=== PATIENT | female | born 1965 | race Caucasian/White ===

== ENCOUNTER 2019-07-21 08:34 | Inpatient (IN) ==
[2019-07-21] MEDS ORDERED: VANCOMYCIN 1 GM/NS 1 GM/250 ML IVPB IV ONE ×2 (09:18→15:00)
[2019-07-21] MEDS ORDERED: MAXIPIME 1 GM in NS 50 ML IV ONE (09:20)
--- NOTE | 2019-07-21 09:24 | PROVIDER DOCUMENTATION ---
HPI-Musculoskeletal Pain/Inj - GENERAL Chief Complaint: Extremity Pain Stated Complaint: FOOT PAIN,DIABETIC Time Seen by Provider: 07/21/19 09:18 - HX OF PRESENT ILLNESS-MUSKULOSKELTAL Nature of Presenting Problem: 54 YO F pmh for DM presents with right great toe pain, redness and swelling getting worse for the past week. Pt states 3 months ago she walked the skin off her feet, and she has had intermittent symptoms since then. She has not f/u with PCP due to lack of insurance. She states she has seen pus pockets on her toe and has lanced it 2x in the past week. She comes in today for worsening symptoms. Quality of Pain: reports: aching, pressure Severity in ED: moderate Onset/Duration: 1 week ago Timing: still present, constant Modifying Factors: improves with: other (lancing) Any recent injury?: Yes Locality of Occurance: Home Similar Symptoms Previously?: No Recently seen or treated by another doctor?: No - LOWER EXTREMITY PAIN/INJURY Lower Extremities Pain: 1st toe: right Context / Method of Injury: reports: other (see HPI) Review of Systems - Adult - REVIEW OF SYSTEMS - ADULT Constitutional: reports: fever. denies: chills Eyes: reports: no symptoms reported Ears, Nose, Mouth & Throat: reports: no symptoms reported Cardiovascular: reports: no symptoms reported Respiratory: denies: shortness of breath, wheezing Gastrointestinal: reports: no symptoms reported. denies: nausea, vomiting Genitourinary: reports: no symptoms reported Musculoskeletal: reports: see HPI Integumentary: reports: see HPI Neurological: reports: no symptoms reported Psychiatric: reports: no symptoms reported Endocrine: reports: no symptoms reported Past History - Adult - PAST MEDICAL HISTORY-ADULT Review of Records: reports: Old Records Reviewed Major Childhood Illnesses: reports: denies history Cardiovascular: reports: denies history Respiratory: reports: denies history Gastrointestinal: reports: denies history Obstetrical/Gynecological: reports: denies history Genitourinary: reports: denies history Musculoskeletal: reports: denies history Neurological: reports: denies history Endocrine/Immune: reports: Diabetes Other Conditions: reports: denies history Additional History: autoimmune disorder, unknown of name - PRIOR SURGERIES/PROCEDURES Surgical/Procedure History: reports: cholecystectomy, - IMMUNIZATION STATUS Childhood Immunizations: See Nurse Assessment Flu Vaccine: See Nurse Assessment - FAMILY HISTORY Family History: reviewed, not pertinent - SOCIAL HISTORY Smoking: quit greater than 1 year Substance Use: denies Living Situation: family Physical Exam-Injury Related - Physical Exam-Injury Related Initial Vital Signs Reviewed: Yes General Appearance: appears well, alert, mild distress (from pain) Eyes: PERRL/EOMI, pink conjunctivae Head, Ears, Nose, Mouth & Throat: normocephalic/atraumatic, moist mucous membranes Neck: supple Respiratory: lungs clear, normal breath sounds, no respiratory distress Cardiovascular: tachycardia Abdominal Exam: normal bowel sounds, non tender, soft Back Exam: no CVA tenderness Extremity: normal range of motion, other (redness, erythema, ulceration to sole of Right great toe. erythema extending to lower calf) Integumentary: other (drainage from ulcerated lesion on sole of right great toe) Neurologic: grossly normal Progress - PLAN OF CARE/RESULTS Progress/Plan/Lab Results: Orders Category Date Time Status Admit - [facility] Routine AdmDCTranf 07/21/19 13:48 Active Activity - Up with Assistance ORDERED Care 07/21/19 13:48 Active Cardiac Monitoring DIRECTED Care 07/21/19 09:12 Completed FSBS/Accucheck Result AC + HS Care 07/21/19 13:48 Active IV Insertion ORDERED Care 07/21/19 09:12 Completed Intake and Output-Strict ORDERED Care 07/21/19 13:48 Active Notify MD of + Sepsis Screen NOW Care 07/21/19 09:12 Completed Notify Physician As Ordered Care 07/21/19 09:12 Active Nursing- MD Consult Request ROUTINE Care 07/21/19 13:48 Active Vital Signs Order Q 8-HR ASSESS Care 07/21/19 13:48 Active MD [Physician/Provider Consults] Routine Cons 07/21/19 13:48 Ordered Diabetic Diet Diet 07/21/19 13:48 Completed CHEST-2 VIEWS [RAD] Stat Exams 07/21/19 09:18 Completed TOE(S)-RIGHT [RAD] Stat Exams 07/21/19 09:42 Completed A1C HGB W EST AVG GLUCOSE [CHEM] Routine Lab 07/22/19 06:21 Completed BLOOD CULTURE [BLDCUL] Stat Lab 07/21/19 09:50 Completed CBC WITH DIFF [HEME] Routine Lab 07/22/19 06:21 Completed CBC WITH DIFF [HEME] Stat Lab 07/21/19 09:08 Completed CK PROFILE [SP CHEM] Stat Lab 07/21/19 09:08 Completed COMPREHENSIVE METABOLIC PANEL [CHEM] Routine Lab 07/22/19 06:21 Completed COMPREHENSIVE METABOLIC PANEL [CHEM] Stat Lab 07/21/19 09:08 Completed LACTATE, PLASMA [CHEM] Lab 07/21/19 12:30 Completed LACTATE, PLASMA [CHEM] Lab 07/21/19 15:05 Completed LACTATE, PLASMA [CHEM] Q3H Lab 07/21/19 09:08 Completed MAGNESIUM [CHEM] Routine Lab 07/22/19 06:21 Completed PROTIME WITH INR [COAG] Stat Lab 07/21/19 09:08 Completed PTT [COAG] Stat Lab 07/21/19 09:08 Completed ROUTINE CULTURE [RM] Routine Lab 07/21/19 10:20 Completed TROPONIN T Stat Lab 07/21/19 09:08 Completed URINALYSIS W/POSS RFLX CULT [URINALYSIS] Stat Lab 07/21/19 11:20 Completed 0.9% Sodium Chloride Inj [Ns] 1,000 ml Med 07/21/19 09:51 Discontinued IV 999 mls/hr 0.9% Sodium Chloride Inj [Ns] 1,000 ml Med 07/21/19 11:12 Discontinued IV 999 mls/hr Acetaminophen [Tylenol] Med 07/21/19 13:48 Discontinued 650 mg PO Q6H PRN PRN CefEPIME [Maxipime] 1 gm Med 07/21/19 09:20 Discontinued 0.9% Sodium Chloride Inj [Ns] 50 ml IV NOW CefEPIME [Maxipime] 2 gm Med 07/21/19 21:00 Discontinued 0.9% Sodium Chloride Inj [Ns] 100 ml IV Q12H Hydrocodone/APAP 7.5 mg/325 mg [[place]-7.5] Med 07/21/19 13:48 Discontinued 1 each PO Q6H PRN PRN Hydromorphone [Dilaudid] Med 07/21/19 10:22 Discontinued 1 mg IV NOW ONE Insulin Lispro [Humalog] Med 07/21/19 16:00 Discontinued See Protocol SUBQ 0700,1100,1600,2100 Ondansetron [Zofran] Med 07/21/19 10:22 Discontinued 4 mg IV NOW ONE Ondansetron [Zofran] Med 07/21/19 13:48 Discontinued 4 mg IV Q4H PRN PRN Pharmacy Order [Vancomycin IV Per Pharmacy] Med 07/21/19 13:48 Discontinued 1 each MISC DIRECTED Vancomycin 1 gm/Ns Med 07/21/19 09:18 Discontinued 1 gm in 250 ml IV NOW Oxygen Device Stat Oth 07/21/19 09:12 Completed Transfer/Admit Order [TRANSFER] Routine Transfer 07/21/19 11:32 Completed Result Diagrams: 07/24/19 06:32 07/24/19 06:32 - REASSESSMENT Reassessment #1 Time Reassessed: 11:13 Status: improving (pt states pain improving. labs reviewed. will order another bolus of fluids. plan for admission.) Reassessment #2 Status: other (sepsis 2/2 to right great toe infection with WBC at 13 and lactate at 2.1. abx and fluids given.) - XRAY 1 XRAY Study: Chest Impression: See EMR Report (EXAM: CHEST-2 VIEWS 07/21/2019 HISTORY: sepsis workup TECHNIQUE: PA and lateral chest COMMENT: There are numerous calcified granulomata bilaterally. The heart size and pulmonary vascularity are within normal limits. The lungs are otherwise clear and unchanged since 10/24/2017. IMPRESSION: No acute disease. Electronically signed by Sukh Teran 07/21/2019 9:39 AM) 2 XRAY Study: Foot Impression: See EMR Report (EXAM: TOE(S)-RIGHT 07/21/2019 HISTORY: toe infecti on TECHNIQUE: Right great toe three views COMMENT: There is an apparent metallic foreign body on the plantar aspect of the distal first metatarsal. There is a small bony nodular calcific foreign body which appears to be on the skin of the plantar surface of the great toe. No evidence of acute fracture or dislocation or periosteal reaction is present. IMPRESSION: Metallic foreign body as described. No acute bony abnormality. Electronically signed by Sukh Teran 07/21/2019 10:26 AM) - CONSULTS/PCP/HOSPITALIST Notification #1 *Consult/PCP/Hospitalist*: admit to hospitalist Time Discussed: 11:13 Consult Disposition: Will see in ED, Admit Departure - Departure Date of Disposition Decision: 07/21/19 Time of Disposition Decision: 11:13 DIAGNOSIS: Toe infection, Hyperglycemia, Foreign body in foot or toe Disposition: ADMITTED INPATIENT 09 Certified Medical Emergency: Emergent Condition: Stable - Critical Care Note This patient required my direct & personal management of CC.: No Attestation - Physician/ PRAFUL Attestation The physician spent face to face time with patient:: Yes Advanced Practice Provider documentation review:: Supervising physician onsite and consulted in the evaluation and care of this patient. The physician did have a face to face encounter with the patient.
[2019-07-21 09:31] LABS: BASO# 0.04 X1000 (0.0-0.2); BASO% 0.3 % (0.0-0.8); EOS# 0.24 X1000 (0.0-0.7); EOS% 1.7 % (0.0-10.0); HEMATOCRIT 40.2 % (37.0-47.0); HEMOGLOBIN 13.4 g/dL (12.0-16.0); IMM GRAN# 0.03 X1000 (0.0-0.04); IMM GRAN% 0.2 % (0.0-0.5); LYMPH# 2.65 X1000 (1.2-3.4); MCH 29.2 PG (27-31); MCHC 33.3 g/dL (33-37); MCV 87.6 FL (81-99); MONO# 0.81 X1000 (0.11-0.59); MONO% 5.8 % (1.7-9.3); MPV 12.6 FL (7.4-10.4); NEUT# 10.21 X1000 (1.4-6.5); PLT 197 X1000 (130-400); RBC 4.59 XMIL (4.2-5.4); RDW 12.5 % (11.5-14.5); WBC 13.98 X1000 (4.8-10.8)
--- NOTE | 2019-07-21 09:41 | Diag Imaging Result Doc PS360 ---
EXAM: CHEST-2 VIEWS 07/21/2019 HISTORY: sepsis workup TECHNIQUE: PA and lateral chest COMMENT: There are numerous calcified granulomata bilaterally. The heart size and pulmonary vascularity are within normal limits. The lungs are otherwise clear and unchanged since 10/24/2017. IMPRESSION: No acute disease. Electronically signed by Sukh Teran 07/21/2019 9:39 AM
[2019-07-21 09:46] LABS: AGAP 18; ALB/GLOB RATIO 1.6; ALBUMIN 4.2 g/dL (3.5-5.0); ALKALINE PHOSPHATASE 96 U/L (32-104); BUN 9 mg/dL (8-22); CALCIUM 9.3 mg/dL (8.8-10.2); CHLORIDE 95 mmol/L (98-107); CK PROFILE 102 U/L (24-173); COSMO 277; CREATININE 0.6 mg/dL (0.5-0.9); ESTIMATED GFR > 60; GLUCOSE 317 mg/dL (70-104); GOT 27 U/L (10-30); GPT 42 U/L (10-36); POTASSIUM 4.6 mmol/L (3.5-5.1); SODIUM 133 mmol/L (136-145); TCO2 20 mmol/L (25-35); TOTAL BILIRUBIN 0.43 mg/dL (0.20-1.00); TOTAL PROTEIN 6.8 g/dL (6.3-8.3)
[2019-07-21 09:47] LABS: INR 0.95; PROTIME 12.7 Seconds (11.0-16.0)
[2019-07-21 09:48] LABS: PTT 24.9 Seconds (22.3-41.8)
[2019-07-21] MEDS ORDERED: NS 1,000 ML IV ONE ×2 (09:51→11:12)
[2019-07-21] MEDS ORDERED: ZOFRAN IV ONE (10:22)
[2019-07-21] MEDS ORDERED: DILAUDID IV ONE (10:22)
--- NOTE | 2019-07-21 10:29 | Diag Imaging Result Doc PS360 ---
EXAM: TOE(S)-RIGHT 07/21/2019 HISTORY: toe infection TECHNIQUE: Right great toe three views COMMENT: There is an apparent metallic foreign body on the plantar aspect of the distal first metatarsal. There is a small bony nodular calcific foreign body which appears to be on the skin of the plantar surface of the great toe. No evidence of acute fracture or dislocation or periosteal reaction is present. IMPRESSION: Metallic foreign body as described. No acute bony abnormality. Electronically signed by Sukh Teran 07/21/2019 10:26 AM
[2019-07-21 11:29] LABS: URINE SOURCE CLEAN CATCH
[2019-07-21 11:32] LABS: BILIRUBIN URINE NEGATIVE (NEGATIVE); BLOOD URINE NEGATIVE (NEGATIVE); COLOR STRAW; GLUCOSE URINE 1000 mg/dL (NEGATIVE); KETONE URINE NEGATIVE (NEGATIVE); LEUKOCYTES URINE NEGATIVE (NEGATIVE); NITRITE URINE NEGATIVE (NEGATIVE); PH URINE 6.5; PROTEIN URINE NEGATIVE (NEGATIVE); SP GRAVITY URINE 1.006; TURBIDITY URINE CLEAR (CLEAR); UR EPITHELIAL CELLS <10 /HPF (<10); URINE BACTERIA NEGATIVE /HPF; URINE RBC <10 /HPF (<10); URINE WBC <10 /HPF (<10); UROBILINOGEN URINE NORMAL (NORMAL)
[2019-07-21] MEDS ORDERED: VANCOMYCIN IV PER PHARMACY MISC SCH (13:48)
[2019-07-21] MEDS ORDERED: TYLENOL PO PRN (13:48)
[2019-07-21] MEDS ORDERED: NORCO-7.5 PO PRN (13:48)
[2019-07-21] MEDS ORDERED: FLU VACCINE IM ONE (17:02)
[2019-07-21] MEDS ORDERED: LANTUS INSULIN SUBQ ONE (17:39)
[2019-07-21] MEDS: HUMALOG SUBQ SCH ×2 (17:51→21:58)
[2019-07-21] MEDS: NS 1,000 ML IV SCH (17:52)
--- NOTE | 2019-07-21 21:05 | HISTORY AND PHYSICAL ---
PRIMARY CARE PROVIDER: None. CHIEF COMPLAINT: Right toe pain. HISTORY OF PRESENT ILLNESS: Ms. Esparza is a 54-year-old female, who carries a past medical history of diabetes mellitus, hypertension, hyperlipidemia, some type of autoimmune disease, but not lupus, who reported 3 to 4 years ago she was diagnosed with diabetes mellitus and her autoimmune disease, that causes her face to turn blood red and her face will start peeling. She gets sores in her hair as well as hair loss, excessive dry mouth, skin rashes. She feels exhausted all the time and when it first started, she had an 80 pound weight gain. Again, all of these symptoms have been intermittent and have been over the past 3 to 4 years. They are not currently flared up at this time, and she has not been receiving treatment for that, nor did she finish her workup at [facility] for this autoimmune disease. She came into the ED today for a right great toe infection and cellulitis that is going up her ruiz. She reported back in April, she was trying to exercise by walking and to lose some weight, to get more energy, and she peeled the skin off of both her feet. The one on the left healed; however, she has been doctoring her right toe herself. She has lanced it a couple of times herself, and it has continued to worsen. She has not been able to go to a doctor secondary to no insurance and not having a job and no money, but she does come to the ED today to be evaluated secondary to the pain. Workup in the ED shows a metallic foreign body, but no acute bony abnormality. White count is 13. Her blood sugar was 317. Plasma lactates were normal. We obtained cultures of her wound, as well as blood cultures, consulted Dr. Streeter and Forest Fire Management Officer, started her on broad-spectrum antibiotics, pain regimen, and will admit her to the surgical telemetry floor and a social service consult for med assistance. PAST MEDICAL HISTORY: 1. Diabetes mellitus, has been untreated. 2. Autoimmune disease. 3. Hypertension. 4. Hyperlipidemia. 5. Diabetic neuropathy. PAST SURGICAL HISTORY: 1. Appendectomy. 2. x2. 3. Right knee scope. FAMILY HISTORY: Paternal grandfather from an [place] at the age of 66. No other diabetes in her family. Dad of lung cancer. SOCIAL HISTORY: She quit smoking greater than 6 years ago. No alcohol, marijuana, or illicit drug use. She is not . She does not work. REVIEW OF SYSTEMS: Twelve-point review of systems complete and negative except for those mentioned in HPI. PHYSICAL EXAMINATION: VITAL SIGNS: Temperature 98.2 degrees, heart rate 96, respirations 16, blood pressure 129/85, O2 is 100% on room air. GENERAL: Ms. Esparza is a pleasant, 54-year-old female who is sitting up in the stretcher in no acute distress. HEENT: Atraumatic, normocephalic. PERRL. NECK: Supple. Trachea midline. CARDIOVASCULAR: S1, S2 appreciated. No murmurs, gallops, rubs noted. RESPIRATORY: Lung sounds clear bilaterally. GI: Soft, nontender, nondistended. Positive bowel sounds 4 quadrants. EXTREMITIES: She does have a swollen right great toe that is red. There is cellulitis going up her ruiz. There is some eschar to the bottom part of her right great toe. I did not appreciate any foul odor. NEUROLOGIC: No focal deficits noted. DIAGNOSTIC DATA: Toe x-ray: Metallic foreign body and no acute bony abnormality. LABORATORY DATA: White count 13, hemoglobin and hematocrit 13 and 40, platelet count 197,000. Sodium 133, potassium 4.6, BUN 9, creatinine 0.6, blood glucose 317, ALT 42. Troponin less than 0.010. Both plasma lactates were negative. Urinalysis is negative. ASSESSMENT AND PLAN: 1. Right great toe diabetic wound infection, with metallic foreign body. Will continue with broad-spectrum antibiotics. Consult Dr. Tony Streeter for possible incision and drainage and debridement and removal of foreign body. 2. Diabetes mellitus. Will check hemoglobin A1c in the a.m. Will start her on sliding scale with patterned blood sugars. Will consult Forest Fire Management Officer for any help with medications. 3. Hypertension. 4. Hyperlipidemia. 5. Diabetic neuropathy. 6. Reported autoimmune disease, but not lupus. The patient never finished a full workup. She has intermittent flares. No flare at this time. 7. Further recommendation to follow physician evaluation, laboratory and diagnostic data. Dictated by AB Bran for Dwight Noble MD cc: MD Elza Killian MD
[2019-07-21] MEDS: MAXIPIME 2 GM in NS 100 ML IV SCH (21:57)
[2019-07-21] MEDS: NEURONTIN PO SCH (22:18)
[2019-07-21] MEDS: MELATONIN PO SCH (22:19)
--- NOTE | 2019-07-21 22:47 | HISTORY AND PHYSICAL ---
ADDENDUM: I have seen and examined Ms. Esparza today. Ms. Esparza presented because of swelling to her right big toe which has been going on for some time, but has been progressively getting worse. She said for the past week she also realized some erythematous changes, some purulence from the lower bottom. She has been having some chills, so she came to the emergency department to be evaluated. Upon presentation, her x-ray of the of the toe, the right one, shows a metallic foreign body. Her physical exam for the most part is unremarkable except for the big right toe, which is remarkably swollen. There is some fluctuance in the plantar surface of the big toe and there is some purulent exudation. The upper part of the big toe is erythematous and is warm, is tender. ASSESSMENT AND PLAN: 1. Right big toe abscess with surrounding cellulitis. X-ray shows a metallic foreign body in there. We have consulted Surgery to evaluate for possible incision and drainage, and removal of the metallic foreign body. Ms. Esparza has also been started on broad-spectrum intravenous antibiotics. 2. Diabetes mellitus. Ms. Esparza does not take any medication at all at home. She has been started on insulin regimen including glargine and sliding scale. 3. Tobacco use. The patient has been counseled. 4. Obesity, with body mass index of 31.3. 5. Clinical volume depletion. The patient will be on fluids. Please refer to the details of the history and physical that has been dictated by the nurse practitioner in the chart. cc: Dwgiht Noble MD
[2019-07-22] MEDS: NEURONTIN PO SCH ×3 (01:30→23:22)
[2019-07-22] MEDS: HUMALOG SUBQ SCH ×5 (01:31→23:22)
[2019-07-22] MEDS: ZOFRAN IV PRN (04:05)
--- NOTE | 2019-07-22 06:54 | CONSULTATION ---
DATE OF CONSULTATION: 07/21/2019 HISTORY OF PRESENT ILLNESS: Ms. Jordana Esparza is a 54-year-old, white female who presented to our emergency department with redness and swelling of her right great toe for the past week. She is a diabetic. She began an exercise regimen which included walking and she developed blisters involving her feet. The blisters involving her left foot healed but her right great toe has not healed and now she has swelling and pain, and x-rays suggest a possible foreign body at the first metatarsal. She has tried to drain a pus pocket involving this toe twice in the last week. It is very tender. She came because of her worsening symptoms. PAST MEDICAL HISTORY: Autoimmune disorder, unknown name. She has had a cholecystectomy and section. She has diabetes. MEDICATIONS: No home medications. ALLERGIES: Bacitracin, neomycin, polymyxin B. SOCIAL HISTORY: She used to be a smoker but quit over a year ago. FAMILY HISTORY: Family history was reviewed with her and was negative. REVIEW OF SYSTEMS: A 14-point review of systems was performed and it was essentially negative except for her right great toe as described above. PHYSICAL EXAMINATION: On exam, her heart rate is 106, blood pressure 124/83, O2 saturation 98%. She is afebrile. She is a middle-aged, white female. No acute distress. HEENT Examination: No jaundice. No oral lesions. Satisfactory dentition. No cervical or supraclavicular lymphadenopathy. Her heart has a regular rate. Lungs were clear. Abdomen was soft, nontender, without palpable mass. No costovertebral tenderness. Rectal and vaginal exams were not performed. She does have palpable peripheral pulses. No peripheral edema. Neurologically, she is alert and oriented x3, and appropriate. She weighs 217 pounds. She is 5 feet 10 inches. LABORATORY DATA: Her fingerstick blood glucose was 271. Her white blood cell count is 14, hematocrit 40%. BUN and creatinine are 9 and 0.6. X-ray of her toe suggested possible foreign body, first metatarsal, right foot. Chest x-ray was essentially normal. IMPRESSION: 1. Right great toe infection in a diabetic with poor glucose control. 2. Possible small foreign body at the metatarsal joint. PLAN: She is receiving IV antibiotics. I think we need to take her to surgery for debridement, irrigation, and removal of any foreign body of her right great toe. We will plan on doing that tomorrow as an add-on case. cc: Elza Streeter MD
[2019-07-22 07:07] LABS: BASO# 0.03 X1000 (0.0-0.2); BASO% 0.3 % (0.0-0.8); EOS# 0.25 X1000 (0.0-0.7); EOS% 2.6 % (0.0-10.0); HEMATOCRIT 36.6 % (37.0-47.0); IMM GRAN# 0.02 X1000 (0.0-0.04); IMM GRAN% 0.2 % (0.0-0.5); LYMPH# 2.18 X1000 (1.2-3.4); LYMPH% 22.7 % (20.5-51.1); MCH 29.1 PG (27-31); MCHC 32.8 g/dL (33-37); MCV 88.6 FL (81-99); MONO# 0.59 X1000 (0.11-0.59); MONO% 6.1 % (1.7-9.3); NEUT# 6.55 X1000 (1.4-6.5); NEUT% 68.1 % (42.2-75.2); PLT 160 X1000 (130-400); RBC 4.13 XMIL (4.2-5.4); RDW 12.2 % (11.5-14.5); WBC 9.62 X1000 (4.8-10.8)
[2019-07-22 07:16] LABS: HEMOGLOBIN A1C 9.3 % (4.8-6.0)
[2019-07-22 07:43] LABS: AGAP 11; ALB/GLOB RATIO 1.3; ALBUMIN 3.8 g/dL (3.5-5.0); ALKALINE PHOSPHATASE 86 U/L (32-104); BUN 5 mg/dL (8-22); CALCIUM 8.8 mg/dL (8.8-10.2); CHLORIDE 103 mmol/L (98-107); COSMO 277; CREATININE 0.4 mg/dL (0.5-0.9); ESTIMATED GFR > 60; GLUCOSE 170 mg/dL (70-104); GOT 25 U/L (10-30); GPT 36 U/L (10-36); MAGNESIUM 1.9 mg/dL (1.5-2.7); POTASSIUM 3.5 mmol/L (3.5-5.1); SODIUM 138 mmol/L (136-145); TCO2 24 mmol/L (25-35); TOTAL BILIRUBIN 0.49 mg/dL (0.20-1.00); TOTAL PROTEIN 6.7 g/dL (6.3-8.3)
[2019-07-22 08:00] LABS: CHOLESTEROL 130 mg/dL (0-200); HDL 19 mg/dL (45-65); TRIGLYCERIDES 440 mg/dL (35-135)
[2019-07-22] MEDS: MAXIPIME 2 GM in NS 100 ML IV SCH ×2 (08:33→23:21)
[2019-07-22] MEDS: NS 1,000 ML IV SCH (08:37)
[2019-07-22] MEDS ORDERED: VANCOMYCIN 1,800 MG in NS 250 ML IV SCH (10:00)
[2019-07-22] MEDS: LANTUS INSULIN SUBQ SCH ×2 (12:04→18:28)
--- NOTE | 2019-07-22 13:24 | PROGRESS NOTE ---
DATE: 07/22/2019 SUBJECTIVE: This morning, Ms. Esparza refers to be doing well. She says she did not have any sleep at all because of pain, and she normally troubles with insomnia. OBJECTIVE: Vital signs: Blood pressure is 144/73, pulse of 90, respirations 18, temperature 98.3 degrees. General: Ms. Esparza is 54-year-old female. She is in bed, in no distress. HEENT: Mucosa is pink and moist. Anicteric. Acyanotic. Neck: Supple. Chest: Good air entry bilaterally. There was no crepitations, no rhonchi. Cardiovascular: Regular rate and rhythm. No murmurs, no rubs, no gallops. Abdomen: Soft, distended, but nontender. Bowel sounds present. Extremities: No pedal edema. The right foot is completely wrapped up. There are some erythematous changes all the way to the proximal part of the of the foot. The big toe continues to be remarkably swollen with exudative and some purulence in the bottom which has very offensive smell. LABORATORY DATA: WBC is normalized to 9.62. Chemistry is also reviewed, unremarkable. The patient's glucose is 170 this morning. The lipid panel is grossly abnormal as well. Microbiology data: Blood cultures are still pending. The big right toe culture is growing gram- negative dipak. The patient's current antimicrobial coverage includes cefepime and vancomycin. ASSESSMENT: 1. Right big toe abscess with surrounding cellulitis. X-ray shows metallic foreign body in. The patient is pending I D this morning with surgery. We will continue with the current antimicrobial coverage. So far, gram-negative seems to be growing in. I suspect this is a polymicrobial infection. We will continue with the vancomycin as well. We will also get Infectious Disease to see her. 2. Diabetes mellitus with presenting A1c of 9.3. The patient is currently on insulin regimen. 3. Tobacco use and abuse. Patient has been counseled. 4. Dyslipidemia. The patient will be started on statin drugs. 5. Obesity with BMI of 31.3. 6. Clinical volume depletion, improved. 7. Insomnia. Patient has been started on melatonin and Ambien. cc: Dwight Noble MD
[2019-07-22] MEDS ORDERED: DIPRIVAN 1% ONE (17:49)
--- NOTE | 2019-07-22 19:10 | INFECTIOUS DISEASE CONSULT REP ---
DATE: 07/22/2019 CONCLUSION: The patient has a badly infected right great toe. There may well be an underlying osteomyelitis. There has been seen on x-ray a metallic foreign body on that toe as well. Culture taken from the right great toe is growing a gram-negative dipak. RECOMMENDATIONS: I agree with treating the patient with cefepime. I have increased the dose to 2 g IV every 12 hours and I have discontinued vancomycin. The patient is going to surgery today for debridement of her great toe. DISCUSSION: The patient tells me that approximately 2 weeks ago she started having increasing pain, swelling and erythema of the right great toe. She has been admitted to the hospital. Her CBC shows a white count of 9620, hemoglobin 12, platelet count 160,000. Creatinine is 0.4, GFR is greater than 60. Liver function studies are normal. Urinalysis was negative for white blood cells and bacteria. Culture from the right great toe is growing a gram-negative dipak. Chest x-ray shows no acute disease. X-ray of the right great toe showed metallic foreign body present in the toe. PAST MEDICAL HISTORY/REVIEW OF SYSTEMS: Eyes and ears: The patient's vision and hearing is good. Neck: No stiffness. Respiratory: No cough or shortness of breath. Cardiac: No chest pain or palpitations. GI: No nausea, vomiting or diarrhea. : No dysuria or flank pain. Neurologic: The patient has pain in her right great toe, which she attributes to diabetic neuropathy. FIRE MANAGEMENT SPECIALIST history: She is a 2, para 2, AB 0. She delivered both of her children by . PREVIOUS HOSPITALIZATIONS AND OPERATIONS: The patient has had 2 C-sections and she has had a right knee arthroscopy. She has also had a cholecystectomy. MEDICAL DISEASES: Positive for diabetes mellitus, autoimmune disease, hypertension, hyperlipidemia. FAMILY HISTORY: Positive for myocardial infarction and cancer. Negative for hypertension and diabetes. SOCIAL HISTORY: [place] She is . She has 2 cats and a dog for pets. She stopped smoking cigarettes 6-1/2 years ago. She does not drink alcoholic beverages or abuse drugs. She does not have a job. PHYSICAL EXAMINATION: Vital signs: Temperature is 99.1 degrees, pulse 83, respirations 18, blood pressure 139/90. The patient is 5 feet 10 inches tall, weighs 217 pounds. Generally, this is an obese, middle-aged female. She is in no acute distress. Head, eyes, ears, nose and throat: She can hear my spoken words and see near objects. I did not notice any white patches in her mouth. Neck: No meningismus. Lungs clear to auscultation. Cardiovascular: Regular heart rate. Abdomen is soft and nontender. Extremities: The right great toe was swollen, very tender, and it had a dusky kind of color to it. It was very tender and it had a foul odor to it also. Neurologic: The patient is alert. She can move her extremities. There is no tremor. Her sensation was intact to touch. Integument: No rash is noted. Thank you for the consult. cc: Yinka Marquez MD
[2019-07-22] MEDS ORDERED: DECADRON ONE (19:23)
[2019-07-22] MEDS ORDERED: ZOFRAN ONE (19:23)
[2019-07-22] MEDS ORDERED: FENTANYL ONE (19:24)
[2019-07-22] MEDS ORDERED: HYDROGEN PEROXIDE SOLUTION ONE (19:44)
[2019-07-22] MEDS ORDERED: PHENERGAN ONE (20:02)
[2019-07-22] MEDS: ATIVAN PO SCH (23:21)
[2019-07-22] MEDS: MELATONIN PO SCH ×2 (23:22→23:23)
[2019-07-22] MEDS: LIPITOR PO SCH (23:22)
[2019-07-22] MEDS: AMBIEN PO PRN (23:22)
--- NOTE | 2019-07-22 23:37 | OPERATIVE NOTE ---
PROCEDURE DATE: 07/22/2019 PREOPERATIVE DIAGNOSES: 1. Soft tissue infection right great toe. 2. Foreign body, right great toe. POSTOPERATIVE DIAGNOSES: 1. Soft tissue infection right great toe. 2. Foreign body, right great toe. PRINCIPAL PROCEDURE: Incision and drainage of right great toe with debridement of necrotic skin, subcutaneous tissue, muscle tendon. SURGEON: Elza Streeter MD. ANESTHESIA: General. BLOOD LOSS: 30 mL. DRAINS: None. INDICATIONS: Ms Jordana Esparza is a 54-year-old white female diabetic who has developed right great toe infection. She began a walking program and she developed blisters involving her feet. The blisters involving her left foot healed, but her right great toe became swollen and painful over the last week, and she presented to our emergency department for further care. X-ray suggested she might have a small foreign body base of right great toe. FINDINGS: She had soft tissue purulence and infection involving not only the plantar aspect of her toe but going around her toe to the anterior aspect of it. It probably involves her bone but we decided against any amputation at this time. We thoroughly cleanse the wound and we will see how it reacts with wound care and IV antibiotics. DESCRIPTION OF PROCEDURE: The patient was brought to the operating room, placed supine, received general anesthesia, was ventilated. Her right foot was prepped and draped within a sterile field. She had a open wound involving the plantar aspect of her right great toe. Through that wound, after debriding the surrounding callus, there was purulent drainage. I used a hemostat to identify the extent of her abscess and I thoroughly opened up the abscess, which included the plantar surface of her great toe and around her great toe to the anterior surface of it. I made my incisions with a 10 blade scalpel. We thoroughly irrigated the wound using saline and peroxide. We packed the wound open with iodoform gauze and then dry dressing was applied. She does have good blood supply to her foot and we will see if wound care and antibiotics help this heal or does she have ongoing osteomyelitis requiring amputation. cc: Elza Streeter MD
[2019-07-23] MEDS: NS 1,000 ML IV SCH ×3 (03:21→22:12)
[2019-07-23] MEDS ORDERED: PHENERGAN IV ONE (05:10)
[2019-07-23] MEDS ORDERED: SODIUM CHLORIDE 0.9% INJ ONE (05:10)
[2019-07-23] MEDS ORDERED: TORADOL IV ONE (05:10)
[2019-07-23 06:35] LABS: HEMATOCRIT 38.2 % (37.0-47.0); HEMOGLOBIN 12.2 g/dL (12.0-16.0); MCH 28.4 PG (27-31); MCHC 31.9 g/dL (33-37); MCV 88.8 FL (81-99); MPV 11.9 FL (7.4-10.4); RBC 4.3 XMIL (4.2-5.4); RDW 12.3 % (11.5-14.5); WBC 8.9 X1000 (4.8-10.8)
[2019-07-23 06:57] LABS: AGAP 11; ALBUMIN 3.8 g/dL (3.5-5.0); BUN 7 mg/dL (8-22); CALCIUM 9.1 mg/dL (8.8-10.2); CHLORIDE 100 mmol/L (98-107); COSMO 278; CREATININE 0.5 mg/dL (0.5-0.9); ESTIMATED GFR > 60; GLUCOSE 241 mg/dL (70-104); PHOSPHORUS 3.4 mg/dL (2.7-4.5); POTASSIUM 3.9 mmol/L (3.5-5.1); SODIUM 136 mmol/L (136-145); TCO2 25 mmol/L (25-35)
[2019-07-23] MEDS: HUMALOG SUBQ SCH ×7 (07:14→21:59)
[2019-07-23] MEDS: MAXIPIME 2 GM/NS 2 GM/100 ML IVPB IV SCH ×2 (07:43→10:46)
[2019-07-23] MEDS ORDERED: MORPHINE IV PRN (08:31)
[2019-07-23] MEDS: NEURONTIN PO SCH ×2 (08:42→21:56)
[2019-07-23] MEDS: LANTUS INSULIN SUBQ SCH (08:43)
[2019-07-23] MEDS: ZOFRAN IV PRN ×2 (08:48→21:56)
[2019-07-23] MEDS: CELEBREX PO SCH (10:45)
[2019-07-23] MEDS: KLONOPIN PO SCH (10:45)
--- NOTE | 2019-07-23 10:56 | PROGRESS NOTE ---
DATE: 07/23/2019 SUBJECTIVE: This morning, Ms. Esparza refers to be doing okay. However, she said she was hurting. She got extremely confused earlier on. She was in a lot of pain, which she think has not been addressed well. OBJECTIVE: Current Vital Signs: Blood pressure is 127/86, pulse of 85, respirations 20, temperature 97.8 degrees, the patient is saturating 98%. General: Ms. Esparza is a 54-year-old female. She was in bed. No distress. HEENT: Mucosa is pink and moist. Anicteric. Acyanotic. Neck: Supple. Chest: Good air entry bilaterally. There were no crepitations, no rhonchi. Cardiovascular: Regular rate and rhythm. No murmurs, no rubs, no gallops. GI: Abdomen is soft, distended, but nontender. Bowel sounds present. Extremities: No pedal edema. The right foot is currently wrapped in sterile dressing. 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 LABORATORY DATA: CBC is completely normal. Chemistry is also within normal range. Glucose is down to 241. We will continue to titrate her insulin needs. OPERATIVE REPORT: The procedure done was incision and drainage of right great toe, with debridement of necrotic skin, subcutaneous tissue, muscle, and tendon. The findings seem to suggest that it could probably involve bone as well. However, they recommend antimicrobial therapy at this point. MICROBIOLOGY: Microbiology data still shows gram-negative dipak. The Gram stain from the surgical specimen seems to suggest gram-positive cocci as well. We are pending the final ID and sensitivity. ASSESSMENT: 1. Right big toe abscess with surrounding cellulitis. The patient is status post incision and drainage. There is a concern that it could be osteomyelitis associated. The patient is currently on intravenous antibiotics. Culture is growing gram-negative dipak. The specimen from the surgery is showing gram-positive cocci as well. Infectious Disease is on board. 2. Diabetes mellitus with presenting A1c of 9.3. The patient is on insulin regimen. We have gone up on her doses. 3. Tobacco use and abuse. The patient has been counseled. 4. Dyslipidemia. Will continue with statin. 5. Insomnia. The patient is currently on melatonin and Ambien. 6. Postsurgical pain management. Ms. Esparza refers that she had a sphincter of Oddi spasm with morphine in the past. We have discontinued morphine, and we have started her on meperidine intravenously as needed for pain management. We have also started her on Celebrex and as needed [place]. Will re-evaluate her later today to see how controlled her pain is. cc: Dwight Noble MD
[2019-07-23] MEDS ORDERED: ROCEPHIN 2 GM in NS 50 ML IV SCH (14:45)
--- NOTE | 2019-07-23 19:51 | PROGRESS NOTE ---
DATE: 07/23/2019 SUBJECTIVE/OBJECTIVE: Ms. Esparza is now postoperative day 1, from incision and drainage of her right great toe. She had an extensive soft tissue infection not only of the plantar side of the toe, but also the anterior side of the toe. We have packed the toe open. The dressing is intact. ASSESSMENT/PLAN: We will plan to remove the packing tomorrow and recleans the toe. She remains on IV antibiotics. I am not sure we can preserve her toe, but I think it is worthwhile continuing IV antibiotics and local wound care, and see how it heals. cc: Elza Streeter MD
[2019-07-23] MEDS: LIPITOR PO SCH (21:56)
[2019-07-23] MEDS: DEMEROL IV PRN (21:56)
[2019-07-23] MEDS: ATIVAN PO SCH (21:57)
[2019-07-23] MEDS: AMBIEN PO PRN (21:57)
[2019-07-23] MEDS: MELATONIN PO SCH ×2 (21:57→21:58)
[2019-07-24] MEDS: NS 1,000 ML IV SCH ×2 (00:33→14:17)
[2019-07-24] MEDS: DEMEROL IV PRN ×5 (03:12→23:18)
[2019-07-24] MEDS: ZOFRAN IV PRN ×5 (03:12→23:18)
[2019-07-24] MEDS: HUMALOG SUBQ SCH ×7 (06:42→21:41)
[2019-07-24 06:57] LABS: HEMOGLOBIN 11.2 g/dL (12.0-16.0); MCH 28.6 PG (27-31); MCV 89.3 FL (81-99); RBC 3.92 XMIL (4.2-5.4); RDW 12.1 % (11.5-14.5); WBC 6.69 X1000 (4.8-10.8)
[2019-07-24 07:21] LABS: AGAP 13; ALBUMIN 3.4 g/dL (3.5-5.0); BUN 9 mg/dL (8-22); CALCIUM 8.5 mg/dL (8.8-10.2); CHLORIDE 107 mmol/L (98-107); COSMO 287; CREATININE 0.5 mg/dL (0.5-0.9); ESTIMATED GFR > 60; GLUCOSE 188 mg/dL (70-104); PHOSPHORUS 3.9 mg/dL (2.7-4.5); POTASSIUM 3.6 mmol/L (3.5-5.1); SODIUM 142 mmol/L (136-145); TCO2 22 mmol/L (25-35)
[2019-07-24] MEDS: NEURONTIN PO SCH ×2 (09:31→21:40)
[2019-07-24] MEDS: CELEBREX PO SCH (09:31)
[2019-07-24] MEDS: KLONOPIN PO SCH (09:31)
[2019-07-24] MEDS: LANTUS INSULIN SUBQ SCH (09:31)
[2019-07-24] MEDS: LEVAQUIN PO SCH (14:30)
--- NOTE | 2019-07-24 18:53 | PROGRESS NOTE ---
DATE: 07/24/2019 SUBJECTIVE: Ms. Esparza is now postop day 2 from incision and drainage of her right great toe. OBJECTIVE: This toe remains swollen and red. The cellulitis involving the leg appears to be slightly better. ASSESSMENT/PLAN: She remains on IV antibiotics, and she needs local wound care at least daily. I would like to try to preserve her toe if possible because the great toe is important for balance. cc: Elza Streeter MD
--- NOTE | 2019-07-24 20:55 | PROGRESS NOTE ---
DATE: 07/24/2019 SUBJECTIVE: This morning Ms. Esparza refers to be doing well. She still has issues with not being able to sleep and that the anxiety medication seems to work. OBJECTIVE: Vital signs: Her blood pressure is 123/77, pulse of 71, respirations 20, temperature 97.5 degrees. On general exam, Ms. Esparza is a 54-year-old female. She is in bed, in no distress. Mucosa is pink and moist. Anicteric. Acyanotic. Neck is supple. Chest: Good air entry bilaterally. There was no crepitations, no rhonchi.Cardiovascular: Regular rate and rhythm. No murmurs, no rubs, no gallops. GI: Abdomen was soft, nontender. Bowel sounds present. Extremities: No pedal edema. Right foot is in a sterile wrap. 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 LABORATORY DATA: CBC shows normocytic anemia. Chemistry is within normal range. Glucose is 118. It is down to 115 on Gluco Chek. So far both cultures have grown E. coli from the big toe. The patient's antimicrobial therapy has been switched to p.o. Levaquin. ASSESSMENT AND PLAN: 1. Right big toe abscess with surrounding cellulitis, also concerning for osteomyelitis. The patient is status post incision and drainage. Culture showing Escherichia coli. Antibiotics have been switched to Levaquin. 2. Diabetes mellitus with presenting A1c of 9.3. The patient is on insulin regimen. Glucose seems a lot better today. 3. Tobacco use and abuse. The patient has been counseled. 4. Dyslipidemia. The patient has been started on statin. 5. Insomnia. We will continue with her current medications. cc: Dwight Noble MD
[2019-07-24] MEDS: LIPITOR PO SCH (21:40)
[2019-07-24] MEDS: ATIVAN PO SCH (21:40)
[2019-07-24] MEDS: MELATONIN PO SCH (21:40)
[2019-07-24] MEDS: AMBIEN PO PRN (21:40)
--- NOTE | 2019-07-25 05:17 | INFECTIOUS DISEASE PROGRESS NO ---
DATE: 07/24/2019 PRESENT ILLNESS: The patient has a badly infected right great toe. Culture from the toe is growing E coli. The patient had surgery done yesterday by Dr. Streeter with debridement of the toe. MEDICATIONS: The patient is on Rocephin. PHYSICAL EXAMINATION: Vital Signs: Temperature is 97.5 degrees, pulse 71, respirations 20, blood pressure is 123/77. General: This is an obese, but otherwise healthy-appearing, middle-aged female. She is in no acute distress. Head/eyes/ears/nose/throat: She can hear my spoken words and see near objects. There is no white patches on her tongue. Neck: No pain with movement. Lungs: Clear to auscultation. Cardiovascular: Heart rate is regular. Abdomen: Soft and nontender. Extremities: The patient had a picture of her right great toe which was taken earlier today; it still is erythematous and swollen. There is an incision on the toe where Dr. Streeter debrided it. LAB AND X-RAY: There is no new radiographic study. Creatinine 0.5. GFR is greater than 60. CBC shows a white blood cell count of 6690, hemoglobin 11.2 and platelet count 167,000. Both cultures from the patient's great toe grew E coli in vitro. The organism is susceptible to ampicillin, cefazolin, Levaquin, Septra and Zosyn. ASSESSMENT AND PLAN: The patient has a badly infected toe. Dr. Streeter feels that it is involving the bone; therefore, she has osteomyelitis of the toe. I am switching her from Rocephin to Levaquin. Some of the side effects of Levaquin, including rash, diarrhea, seizures, and tendon rupture have been explained to the patient. She agrees with treatment. COMORBIDITIES: The patient is a diabetic and she is obese. She also has an autoimmune disease. cc: Yinka Marquez MD
[2019-07-25] MEDS: DEMEROL IV PRN ×4 (06:03→21:40)
[2019-07-25] MEDS: ZOFRAN IV PRN ×4 (06:03→21:40)
[2019-07-25] MEDS: NS 1,000 ML IV SCH (06:08)
[2019-07-25] MEDS: HUMALOG SUBQ SCH ×7 (06:11→21:42)
[2019-07-25] MEDS: NEURONTIN PO SCH ×2 (11:09→21:41)
[2019-07-25] MEDS: LEVAQUIN PO SCH (11:10)
[2019-07-25] MEDS: KLONOPIN PO SCH (11:10)
[2019-07-25] MEDS: LANTUS INSULIN SUBQ SCH (11:10)
[2019-07-25] MEDS: CELEBREX PO SCH (11:11)
[2019-07-25] MEDS: LIPITOR PO SCH (21:41)
[2019-07-25] MEDS: ATIVAN PO SCH (21:41)
[2019-07-25] MEDS: MELATONIN PO SCH (21:41)
[2019-07-25] MEDS: AMBIEN PO PRN (21:41)
[2019-07-26] MEDS: ZOFRAN IV PRN ×5 (02:42→21:35)
[2019-07-26] MEDS: DEMEROL IV PRN ×5 (02:42→21:35)
--- NOTE | 2019-07-26 04:07 | GENERAL SURGERY PROGRESS NOTE ---
DATE: 07/25/2019 SUBJECTIVE: The patient is doing okay. She denies any changes or new concerns. OBJECTIVE: VITAL SIGNS: She is afebrile. Vital signs are stable. General: She is awake, alert, oriented x3. No acute distress. Extremities: The right foot was bandaged. LABORATORY: None today. ASSESSMENT AND PLAN: A 54-year-old female with right great toe infection status post debridement. She is on antibiotics which we will continue. She is getting dressing changes daily. Dr. Streeter will reassess for any further surgical needs on Saturday. cc: Lei Noland MD
--- NOTE | 2019-07-26 05:17 | PROGRESS NOTE ---
DATE: 07/25/2019 SUBJECTIVE: This morning Ms. Esparza refers to be doing fairly okay. No new complaints. The dressing over her right big toe was slightly soiled. OBJECTIVE: Vital signs: Blood pressure is 148/79, pulse of 100, respirations 20, temperature is 98.3 degrees. Patient was saturating 95%. General: Ms. Esparza is a 54-year-old female. She is in bed. No distress. HEENT: Mucosa is pink and moist. Anicteric. Acyanotic. Neck: Supple. Chest: Clear to auscultation. No crepitations. No rhonchi. Cardiovascular: Regular rate and rhythm. Gastrointestinal: Abdomen is soft. Nontender. Bowel sounds present. No hepatosplenomegaly. Extremities: No pedal edema. Right foot is still in sterile wrap. The bottom seems to be slightly soiled with some purulent material. 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 There are no focal neurological deficit. LABORATORY DATA: Glucose is 123. The patient's anaerobes culture was negative. CURRENT MEDICATIONS: Have all been reviewed. She has been switched to p.o. Levaquin. ASSESSMENT: 1. Escherichia coli abscess to right big toe associated with surrounding cellulitis with possible underlying osteomyelitis. Patient is status post incision and drainage. Antibiotic has been switched to p.o. Levaquin. We will follow up with surgery. There is the concern that Ms Esparza might lose her toe. Surgery will evaluate the wound and make a decision on Saturday. 2. Diabetes mellitus with presenting A1c of 9.3. Patient is currently on insulin regimen. Glucose is better controlled. 3. Tobacco use and abuse prior to hospitalization. Patient has been counseled. 4. Dyslipidemia. Patient is currently on statin. 5. Insomnia, improved. Today, we are going to continue with the current antimicrobial coverage, insulin for diabetes control. We will discontinue the IV fluids and continue with the wound care and wait on further recommendations from surgery. cc: Dwight Noble MD
[2019-07-26] MEDS: HUMALOG SUBQ SCH ×7 (06:41→20:48)
[2019-07-26] MEDS: LANTUS INSULIN SUBQ SCH ×2 (07:48→11:38)
[2019-07-26] MEDS: CELEBREX PO SCH ×2 (07:49→11:30)
[2019-07-26] MEDS: LEVAQUIN PO SCH ×2 (07:49→11:38)
[2019-07-26] MEDS: KLONOPIN PO SCH ×2 (07:49→11:28)
[2019-07-26] MEDS: NEURONTIN PO SCH ×3 (07:51→21:35)
--- NOTE | 2019-07-26 16:24 | GENERAL SURGERY PROGRESS NOTE ---
DATE: 07/26/2019 SUBJECTIVE: The patient has had no new complaints or problems overnight. She continues to have some pain in her right toe and foot. OBJECTIVE: Vital signs: She is afebrile. Vital signs are stable. General: She is awake, alert, oriented x3. No acute distress. Extremities: The right foot has a dressing on it without any significant breakthrough bleeding or drainage. ASSESSMENT AND PLAN: A 54-year-old female with right diabetic foot infection status post debridement of the right great toe. We will continue with antibiotics and dressing changes. Dr. Prieto will re-evaluate tomorrow. cc: Lei Noland MD
--- NOTE | 2019-07-26 20:06 | PROGRESS NOTE ---
DATE: 07/26/2019 SUBJECTIVE: This morning Ms. Esparza refers to be doing fairly okay. She said the wound was dressed this morning and it was not hurting her that much. OBJECTIVE: Vital signs: Blood pressure 152/77, pulse of 69, respirations 18, temperature 98.6 degrees. General: Ms. Esparza is a 54-year-old female. She is in bed no distress. HEENT: Mucosa is pink and moist. Anicteric. Acyanotic. Neck: Supple. Respiratory System.: Clear is clear to auscultation. No crepitations. No rhonchi. Cardiovascular: Regular rate and rhythm. No murmurs, no rubs, no gallops. GI System: Abdomen is soft, distended, but nontender. Bowel sounds present. There is no hepatosplenomegaly. Extremities: No pedal edema. The right foot is still in sterile wrap, but it looks clean. The patient had a picture of the wound today and it, for most part, looks clean without any purulence. 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 There is no focal neurological deficit. LABORATORY DATA: Glucose is 184. MEDICATIONS: The patient's medications have been reviewed. She is still on oral levofloxacin. ASSESSMENT: 1. Diabetic foot with abscess formation to the right big toe associated with surrounding cellulitis. The patient with possible underlying osteomyelitis. Patient is status post incision and drainage. Culture has shown Escherichia coli. Antibiotics have been switched to oral Levaquin. 2. Diabetes mellitus with presenting A1c of 9.3. Patient is currently on insulin regimen. Glucose better controlled. 3. Tobacco use and abuse prior to hospitalization. Patient has been counseled. 4. Dyslipidemia. Patient is on statin. 5. Insomnia. Improved. PLAN: In general, I think Ms. Esparza is doing well. We are going on surgery to evaluate the foot tomorrow to make a decision, if there is any further intervention that needs to be done. cc: Dwight Noble MD
[2019-07-26] MEDS: ATIVAN PO SCH (21:34)
[2019-07-26] MEDS: MELATONIN PO SCH (21:34)
[2019-07-26] MEDS: AMBIEN PO PRN (21:35)
[2019-07-26] MEDS: LIPITOR PO SCH (21:35)
[2019-07-27] MEDS: DEMEROL IV PRN ×4 (01:12→15:08)
[2019-07-27] MEDS: ZOFRAN IV PRN ×4 (01:12→15:08)
[2019-07-27] MEDS: HUMALOG SUBQ SCH ×6 (06:16→16:48)
[2019-07-27] MEDS: NEURONTIN PO SCH (09:12)
[2019-07-27] MEDS: CELEBREX PO SCH (09:13)
[2019-07-27] MEDS: LEVAQUIN PO SCH (09:13)
[2019-07-27] MEDS: KLONOPIN PO SCH (09:13)
[2019-07-27] MEDS: LANTUS INSULIN SUBQ SCH (09:14)
--- NOTE | 2019-07-27 11:20 | PROGRESS NOTE ---
DATE: 07/27/2019 Ms. Jordana Esparza is a 54-year-old, white, female diabetic who is status post incision and drainage of her right great toe because of a soft tissue infection of her toe. She has a chronic ulcer involving the plantar aspect of this toe. She has been on IV antibiotics and has received local wound care over the last several days with improvement of the swelling of her right great toe and the cellulitis involving the toe and her leg. She is now on p.o. antibiotics. She does have several social issues. She has no primary care physician to help with her diabetes control. She is unable to get her medications, according to the patient. She lives in an apartment with her son. PLAN: She will need at least p.o. antibiotics for 4 to 6 weeks after discharge. She also needs good diabetic control or we can count on her being rehospitalized. I did discuss with her no weightbearing on her right great toe and how to clean and how to care for the wound. cc: Elza Streeter MD
[2019-07-27 11:30] VITALS: BP 128/68
[2019-07-27] MEDS ORDERED: HUMULIN 70/30 SUBQ SCH (16:00)
[2019-07-28] MEDS ORDERED: HUMULIN 70/30 SUBQ SCH (07:00)
--- NOTE | 2019-07-29 06:41 | DISCHARGE SUMMARY ---
ADMISSION DATE: 07/21/2019 DISCHARGE DATE: 07/27/2019 DISPOSITION: Home. FOLLOW-UP: 1. Dr. Streeter. 2. Dr. Marquez. 3. The patient has been advised to look for a primary care doctor. CONSULTATION DURING THIS ADMISSION: 1. Surgery was consulted; patient was seen by Dr. Streeter. 2. Infectious Disease was consulted; patient was seen by Dr. Marquez. INVASIVE PROCEDURES DONE DURING THIS ADMISSION: An incision and drainage of right big toe with debridement of necrotic skin, subcutaneous tissue, muscle, tendon was done by Dr. Streeter on 07/22/2019. IMAGING STUDIES OF SIGNIFICANCE: 1. A chest x-ray showed no acute disease. 2. A toe x-ray showed a metallic foreign body as described. ADMISSION DIAGNOSES: 1. Right great toe diabetic wound infection with metallic foreign body. 2. Diabetes mellitus. 3. Hypertension. 4. Dyslipidemia. 5. Diabetic neuropathy. DIAGNOSES AT THE TIME OF DISCHARGE: 1. Diabetic foot with abscess formation to the right big toe associated with surrounding cellulitis. There is a concern for possible underlying osteomyelitis. The patient is status post incision and drainage. Cultures grew Escherichia coli antibiotics switched to oral Levaquin. 2. Diabetes mellitus with presenting A1c of 9.3. Patient is on insulin regimen. 3. Tobacco use and abuse prior to hospitalization. 4. Dyslipidemia. 5. Diabetic autonomic peripheral neuropathy. 6. Insomnia. DISCHARGE MEDICATIONS: 1. Lipitor 40 mg p.o. at bedtime. 2. Insulin 70/30, 30 units in the morning and 15 units in the evening. 3. Klonopin 0.5 p.o. q.a.m. 4. Levaquin 500 p.o. daily. 5. Hydrocodone 7.5 p.o. q. 6 hours p.r.n. 6. Celebrex 200 mg p.o. daily. 7. Gabapentin 200 mg b.i.d. Glucometer and lancets with glucose strips were all prescribed. PRESENTING COMPLAINT: Right toe pain. HISTORY OF PRESENTING COMPLAINT: Ms. Esparza is a 54-year-old female, who has a history of diabetes mellitus, hypertension, dyslipidemia, who presented to the emergency department because of swelling and pain to the right big toe. Ms. Esparza was evaluated. There was a concern that she could potentially have an abscess. She was admitted to the medical floor for further medical care. HOSPITAL COURSE: Ms. Esparza was initially started on IV antibiotics. She also had extremely high glucose levels, so she was started on insulin regimen. Surgery was consulted; patient was seen by Dr. Streeter. A decision was made to explore the big toe. She was sent to OR. Incision and drainage was done. Please refer to the details of the surgical report. Postoperatively, Ms. Esparza continued to improve. Ms. Esparza was also seen by Infectious Disease. The culture came back both on the presurgical specimen and on the special specimen as E coli. Antibiotics was changed to oral Levaquin by Dr. Marquez. Ms. Esparza was kept a couple more days in the hospital to ensure adequate big toe healing. Her glucose remained very well under control throughout the hospital course. On the day of discharge, Ms. Esparza was seen by both Surgery and Infectious Disease. They were both okay for Ms. Esparza to be discharged. Unfortunately, Ms. Esparza does not have any form of insurance, and she was very concerned about being able to get her medications. Ms. Esparza was referred to Environmental Science Technician for medication assist, and she has been evaluated and her medications will be expedited through the [facility]. Ms. Esparza has also been given Glucometer, glucose strips and lancet for adequate glucose monitoring at home. She has been given recommendations and directives on how to protect the big toe and to avoid weightbearing on her foot for now. She is going to be following up with Dr. Streeter, as well as with Infectious Disease. During the hospital course, Ms. Esparza did complain of insomnia and she was started on Lexapro and some benzodiazepine. Yesterday before she got discharged, she was requesting to go up on both the Klonopin and the Ativan, which I did not think that there was any need to go up on them, and since Ms. Esparza needed those medications for the acute hospitalization because according to her she could not be sleeping, once she goes back home I do not think she really will need them anyway and this was explained to her. All the discharge instructions have been discussed with her and she voiced understanding. Specifically, we did stress the utmost need to be compliant with her medications and also to monitor very closely her diabetes to avoid any amputation of her toe. Ms. Esparza referred to and voiced understanding. TIME SPENT FOR DISCHARGE: 38 minutes. cc: Dwight Noble MD
== END 2019-07-27 18:33 | disposition home or self-care (01) | DRG 982 ==
LOC: ED 08:34 → 4N 13:25
PROVIDERS: ATTEND Internal Medicine